=== PATIENT | male | born 1950 | race Two or more races ===

== ENCOUNTER 2023-11-05 11:10 | Inpatient (IN) | payer MEDICARE, OTHER ==
[~2023-11-05] VITALS: Ht 177.8 cm; Wt 94.3 kg
[2023-11-05 14:14] LABS: BASOPHILS % (AUTO) 0.5 % (0.0-2.0); EOSINOPHILS # (AUTO) 0.2 K/uL (0.0-0.7); EOSINOPHILS % (AUTO) 2.3 % (0.0-6.0); HEMATOCRIT 46 % (39-51); HEMOGLOBIN 15.8 g/dL (13.5-17.5); LYMPHOCYTES # (AUTO) 2.3 K/uL (0.8-4.8); LYMPHOCYTES % (AUTO) 32.6 % (20.0-44.0); MEAN CORPUSCULAR HEMOGLOBIN 32 PG (26.0-33.0); MEAN CORPUSCULAR HGB CONC 34 g/dl (31.0-36.0); MEAN CORPUSCULAR VOLUME 93 fL (80-96); MONOCYTES # (AUTO) 0.7 K/uL (0.1-1.30); MONOCYTES % (AUTO) 10.2 % (2.0-12.0); NEUTROPHILS # (AUTO) 3.9 K/uL (1.8-8.9); NEUTROPHILS % (AUTO) 54.4 % (43.0-81.0); PLATELET COUNT (AUTO) 129 K/uL (150-450); RED BLOOD CELL COUNT(AUTO) 4.97 MIL/uL (4.5-6.0); RED CELL DISTRIBUTION WIDTH 14.1 % (11.5-15.0); WHITE BLOOD COUNT (AUTO) 7.2 K/uL (4.3-11.0)
[2023-11-05 14:20] LABS: CALCIUM, SERUM 9.1 mg/dL (8.5-10.1); CREATININE 0.9 mg/dL (0.6-1.3); MAGNESIUM 2.3 mg/dL (1.8-2.4); POTASSIUM 4.2 mmol/L (3.5-5.1)
[2023-11-05] MEDS ORDERED: LORAZEPAM INJ 2 MG/ML VIAL ONE (15:54)
[2023-11-05] MEDS: LORAZEPAM INJ 2 MG/ML VIAL IV ONE (15:58)
[2023-11-05] MEDS: LEVETIRACETAM (500MG) 1,000 MG in IV NS 0.9% 90 ML IV SCH (16:15)
[2023-11-05] MEDS ORDERED: Z GUARD REMEDY 4 OZ OINT TP PRN (18:00)
[2023-11-05] MEDS ORDERED: ONDANSETRON HCL/PF 4 MG/2 ML VIAL IVP PRN (18:00)
[2023-11-05] MEDS ORDERED: LORAZEPAM INJ 2 MG/ML VIAL IV PRN (18:00)
[2023-11-05] MEDS ORDERED: ACETAMINOPHEN 325 MG TABLET PO PRN (18:00)
[2023-11-05] MEDS ORDERED: METHOCARBAMOL (500MG) 500 MG TABLET PO PRN (18:00)
[2023-11-05] MEDS ORDERED: MAGNESIUM HYDROXIDE 30 ML UDC PO PRN (18:00)
[2023-11-05] MEDS: IV NS 0.9% 1,000 ML IV PRN (19:58)
[2023-11-05 20:00] VITALS: BP 119/82; TEMP 98.1; O2SAT 100
[2023-11-05] MEDS: ATORVASTATIN 40 MG TABLET PO SCH (21:22)
[2023-11-05] MEDS: LEVETIRACETAM (250 MG) 250 MG TABLET PO SCH (21:22)
[2023-11-05] MEDS: ENOXAPARIN SODIUM 40 MG/0.4 ML DISP.SYRIN SQ SCH (21:35)
[2023-11-06] VITALS: BP 118/82; TEMP 97.9; O2SAT 100
[2023-11-06 04:00] VITALS: BP 121/85; TEMP 98.3; O2SAT 98
[2023-11-06 07:05] LABS: BASOPHILS % (AUTO) 0.5 % (0.0-2.0); EOSINOPHILS # (AUTO) 0.2 K/uL (0.0-0.7); EOSINOPHILS % (AUTO) 3.1 % (0.0-6.0); HEMATOCRIT 42 % (39-51); HEMOGLOBIN 14.5 g/dL (13.5-17.5); LYMPHOCYTES # (AUTO) 1.9 K/uL (0.8-4.8); LYMPHOCYTES % (AUTO) 30.7 % (20.0-44.0); MEAN CORPUSCULAR HEMOGLOBIN 32 PG (26.0-33.0); MEAN CORPUSCULAR HGB CONC 34 g/dl (31.0-36.0); MEAN CORPUSCULAR VOLUME 92 fL (80-96); MONOCYTES # (AUTO) 0.6 K/uL (0.1-1.30); MONOCYTES % (AUTO) 10.3 % (2.0-12.0); NEUTROPHILS # (AUTO) 3.4 K/uL (1.8-8.9); NEUTROPHILS % (AUTO) 55.4 % (43.0-81.0); PLATELET COUNT (AUTO) 120 K/uL (150-450); RED BLOOD CELL COUNT(AUTO) 4.59 MIL/uL (4.5-6.0); RED CELL DISTRIBUTION WIDTH 13.6 % (11.5-15.0)
[2023-11-06 07:23] LABS: BILIRUBIN,TOTAL 0.8 mg/dL (0.2-1.0); CALCIUM, SERUM 8.8 mg/dL (8.5-10.1); MAGNESIUM 2.1 mg/dL (1.8-2.4); PHOSPHORUS 3.2 mg/dL (2.5-4.9); POTASSIUM 3.6 mmol/L (3.5-5.1); TOTAL PROTEIN, SERUM 6.7 g/dL (6.4-8.2)
[2023-11-06 07:37] LABS: THYROID STIMULATING HORMONE 3.17 uIU/mL (0.358-3.74)
[2023-11-06 07:55] LABS: APPEARANCE,URINE CLEAR (CLEAR); BILIRUBIN,URINE NEGATIVE (NEGATIVE); BLOOD, URINE NEGATIVE Ery/uL (NEGATIVE); COLOR,URINE YELLOW (YELLOW); KETONES,URINE NEGATIVE (NEGATIVE); LEUKOCYTE ESTERASE ,URINE NEGATIVE (NEGATIVE); NITRITE, URINE NEGATIVE (NEGATIVE); PROTEIN,URINE NEGATIVE (NEGATIVE); UGLUCOSE NEGATIVE (NEGATIVE)
[2023-11-06 08:00] VITALS: BP 120/84; TEMP 97.7; O2SAT 96
[2023-11-06] MEDS ORDERED: SENN-261 PO (08:00)
[2023-11-06] MEDS ORDERED: ASPI-1169 PO (08:00)
[2023-11-06] MEDS ORDERED: LISI10TA29 PO (08:00)
[2023-11-06] MEDS ORDERED: OMEP40CA21 PO (08:00)
[2023-11-06] MEDS ORDERED: LEVE100023 PO (08:00)
[2023-11-06] MEDS ORDERED: ATOR40TA PO (08:00)
[2023-11-06] MEDS ORDERED: ACET325C7 PO (08:00)
[2023-11-06] MEDS: ASPIRIN 81 MG TAB.CHEW PO SCH (08:33)
[2023-11-06] MEDS: PANTOPRAZOLE 40 MG TABLET.DR PO SCH (08:33)
[2023-11-06 12:00] VITALS: BP 131/74; TEMP 97.9; O2SAT 99
[2023-11-06] MEDS: CLOPIDOGREL BISULFATE 75 MG TABLET PO SCH (13:09)
[2023-11-06 16:00] VITALS: BP 114/59; TEMP 98.2; O2SAT 96
[2023-11-06] MEDS ORDERED: IOHEXOL-350 100 ML VIAL IV ONE (16:02)
[2023-11-06] MEDS ORDERED: CT SWABBABLE VALVE TRANS SET 1 EA INFUS.SET MC ONE (16:02)
[2023-11-06 20:00] VITALS: BP 118/82; TEMP 97.7; O2SAT 96; O2SAT 99
[2023-11-06] MEDS: LEVETIRACETAM (250 MG) 250 MG TABLET PO SCH (21:33)
[2023-11-07] VITALS: BP 123/82; TEMP 97.9; O2SAT 95
[2023-11-07 04:00] VITALS: BP 123/82; TEMP 97.7; O2SAT 95
[2023-11-07 06:48] LABS: BASOPHILS % (AUTO) 0.5 % (0.0-2.0); EOSINOPHILS # (AUTO) 0.1 K/uL (0.0-0.7); EOSINOPHILS % (AUTO) 2.2 % (0.0-6.0); HEMATOCRIT 41 % (39-51); HEMOGLOBIN 14.3 g/dL (13.5-17.5); LYMPHOCYTES # (AUTO) 1.7 K/uL (0.8-4.8); LYMPHOCYTES % (AUTO) 28.5 % (20.0-44.0); MEAN CORPUSCULAR HEMOGLOBIN 32 PG (26.0-33.0); MEAN CORPUSCULAR HGB CONC 35 g/dl (31.0-36.0); MEAN CORPUSCULAR VOLUME 91 fL (80-96); MONOCYTES # (AUTO) 0.5 K/uL (0.1-1.30); MONOCYTES % (AUTO) 7.9 % (2.0-12.0); NEUTROPHILS # (AUTO) 3.7 K/uL (1.8-8.9); NEUTROPHILS % (AUTO) 60.9 % (43.0-81.0); PLATELET COUNT (AUTO) 126 K/uL (150-450); WHITE BLOOD COUNT (AUTO) 6.1 K/uL (4.3-11.0)
[2023-11-07 07:10] LABS: CALCIUM, SERUM 8.8 mg/dL (8.5-10.1); CREATININE 0.9 mg/dL (0.6-1.3); MAGNESIUM 1.9 mg/dL (1.8-2.4); PHOSPHORUS 3.6 mg/dL (2.5-4.9); POTASSIUM 3.8 mmol/L (3.5-5.1)
[2023-11-07 08:00] VITALS: BP 123/85; TEMP 98.6; O2SAT 97
[2023-11-07 12:00] VITALS: BP 111/62; TEMP 98.4; O2SAT 98
[2023-11-07 16:00] VITALS: BP 129/65; TEMP 97.9; O2SAT 99
[2023-11-07 20:00] VITALS: BP 135/76; TEMP 97.3; O2SAT 99
[2023-11-07] MEDS: LEVETIRACETAM (250 MG) 250 MG TABLET PO SCH (21:17)
[2023-11-08] VITALS: BP 121/70; TEMP 97.3; O2SAT 98
[2023-11-08 04:00] VITALS: BP 132/85; TEMP 97.3; O2SAT 99
[2023-11-08 08:00] VITALS: BP 135/76; TEMP 97.3; O2SAT 99
[2023-11-08 12:00] VITALS: BP 112/70; TEMP 98.6; O2SAT 97
[2023-11-08 16:00] VITALS: BP 118/85; TEMP 98.2; O2SAT 97
[2023-11-08 20:00] VITALS: BP 129/74; TEMP 99.3; O2SAT 97
[2023-11-09] VITALS: BP 110/71; TEMP 99.1; O2SAT 96
[2023-11-09 04:00] VITALS: BP 130/71; TEMP 98.6; O2SAT 98
[2023-11-09 08:00] VITALS: BP 130/71; TEMP 98.2; O2SAT 99
[2023-11-09] MEDS ORDERED: LEVE1000 PO (10:27)
[2023-11-09] MEDS ORDERED: CLOP75TA15 PO (10:27)
== END 2023-11-09 13:08 | DRG 65 ==
LOC: ER 11:22 → TELE1 17:54
PROVIDERS: ADMIT Nurse Practitioner Family; ATTEND Nurse Practitioner Acute Care
DX: I63.9 Cerebral infarction, unspecified (principal); E87.1 Hypo-osmolality and hyponatremia; I69.351 Hemiplegia and hemiparesis following cerebral infarction affecting right dominant side; G40.909 Epilepsy, unspecified, not intractable, without status epilepticus; D69.6 Thrombocytopenia, unspecified; K21.9 Gastro-esophageal reflux disease without esophagitis; G93.89 Other specified disorders of brain; E86.1 Hypovolemia; R63.1 Polydipsia; R29.709 NIHSS score 9
CPT/HCPCS: 36415; 70450-TC; 70496-TC; 70498-TC; 70551-TC; 71045-TC; 80048-TC; 80053-TC; 80061-TC; 83735-TC; 84100-TC; 84443-TC; 84484-TC; 85025-TC; 92526; 92611-TC; 97110-TC; 97112-TC; 97164; 97530-TC; A4223; G0378; J1650; J1953; J2060; J7030; Q9967

== ENCOUNTER 2025-08-26 08:31 | Inpatient (IN) | payer MEDICARE, OTHER ==
[~2025-08-26] VITALS: Ht 177.8 cm; Wt 69.9 kg
[~2025-08-26 08:31] MED LIST: ACET325C7 PO; ASPI-1169 PO; ATOR40TA PO; CLOP75TA15 PO; LEVE1000 PO; LISI10TA29 PO; OMEP40CA21 PO; SENN-261 PO
[2025-08-26] MEDS: IV NS 0.9% 500 ML BAG IV ONE (08:58)
[2025-08-26 09:35] LABS: APPEARANCE,URINE CLEAR (CLEAR); BLOOD, URINE NEGATIVE Ery/uL (NEGATIVE); LEUKOCYTE ESTERASE ,URINE NEGATIVE (NEGATIVE); NITRITE, URINE NEGATIVE (NEGATIVE); UGLUCOSE NEGATIVE (NEGATIVE)
[2025-08-26 09:58] LABS: PLATELET COUNT (AUTO) 131 K/uL (150-450); RED BLOOD CELL COUNT(AUTO) 4.52 MIL/uL (4.5-6.0); RED CELL DISTRIBUTION WIDTH 14.8 % (11.5-15.0); WHITE BLOOD COUNT (AUTO) 5.3 K/uL (4.3-11.0)
[2025-08-26 10:06] LABS: CALCIUM, SERUM 8.6 mg/dL (8.5-10.1); CREATININE 1.1 mg/dL (0.6-1.3); SODIUM SERUM 141 mmol/L (136-145); UREA NITROGEN, BLOOD 14 mg/dL (7-18)
[2025-08-26 10:07] LABS: SERUM AMMONIA 14 umol/L (11-32)
[2025-08-26] MEDS ORDERED: CT SWABBABLE VALVE TRANS SET 1 EA INFUS.SET MC ONE (10:10)
[2025-08-26] MEDS ORDERED: IV NS 0.9% 250 ML IV ONE (10:10)
[2025-08-26] MEDS ORDERED: IOHEXOL-300 100 ML VIAL IV ONE (10:10)
[2025-08-26 10:12] LABS: ASPARTATE AMINOTRANSFERASE 25 U/L (15-37); TOTAL PROTEIN, SERUM 7.6 g/dL (6.4-8.2)
[2025-08-26 10:14] LABS: LACTIC ACID 1.4 mmol/L (0.4-2.0)
[2025-08-26 10:20] LABS: INR 1.02 (0.91-1.10)
[2025-08-26] MEDS ORDERED: ONDANSETRON HCL/PF 4 MG/2 ML VIAL IVP PRN (12:30)
[2025-08-26] MEDS ORDERED: ACETAMINOPHEN 325 MG TABLET PO PRN (12:30)
[2025-08-26] MEDS ORDERED: MAG HYDROX/AL HYDROX/SIMETH 30 ML UDC PO PRN (12:30)
[2025-08-26] MEDS ORDERED: MAGNESIUM HYDROXIDE 30 ML UDC PO PRN (12:30)
[2025-08-26] MEDS ORDERED: HYDROCODONE/APAP 5/325MG TABLET PO PRN (12:30)
[2025-08-26] MEDS ORDERED: Z GUARD REMEDY 4 OZ OINT TP PRN (12:30)
[2025-08-26] MEDS: IV NS 0.9% 1,000 ML IV PRN (13:08)
[2025-08-26] MEDS: PANTOPRAZOLE 40 MG TABLET.DR PO SCH (13:08)
[2025-08-26 16:00] VITALS: BP 107/70; TEMP 98.2; O2SAT 96
[2025-08-27 07:03] LABS: PLATELET COUNT (AUTO) 117 K/uL (150-450); RED BLOOD CELL COUNT(AUTO) 4.38 MIL/uL (4.5-6.0); RED CELL DISTRIBUTION WIDTH 14.6 % (11.5-15.0); WHITE BLOOD COUNT (AUTO) 4.3 K/uL (4.3-11.0)
[2025-08-27 07:51] LABS: CALCIUM, SERUM 8.8 mg/dL (8.5-10.1); CREATININE 0.9 mg/dL (0.6-1.3); PHOSPHORUS 3.4 mg/dL (2.5-4.9); SODIUM SERUM 141.0 mmol/L (136-145); UREA NITROGEN, BLOOD 11.0 mg/dL (7-18)
[2025-08-27 08:56] LABS: LDL 103.0 mg/dL (0-99)
[2025-08-27 16:00] VITALS: BP 114/75; TEMP 97.2; O2SAT 99
[2025-08-28] VITALS: BP 119/73; TEMP 98.4; O2SAT 100
[2025-08-28 08:00] VITALS: BP 125/84; TEMP 97.7; O2SAT 94
[2025-08-28 16:00] VITALS: BP 140/90; TEMP 98; O2SAT 97
[2025-08-28 20:00] VITALS: BP 102/69; TEMP 98.2; O2SAT 99
[2025-08-29 04:00] VITALS: BP 123/72; TEMP 97.7; O2SAT 99
[2025-08-29 08:00] VITALS: BP 137/81; TEMP 97.6; O2SAT 96
[2025-08-29] MEDS ORDERED: ACID1TAB12 PO (10:12)
[2025-08-29] MEDS ORDERED: PANT40TA49 PO (10:12)
[2025-08-29 16:00] VITALS: BP 103/68; TEMP 98.6; O2SAT 97
== END 2025-08-29 17:15 | DRG 391 ==
LOC: ER 08:36 → MEDSG1 10:23
PROVIDERS: ADMIT Nurse Practitioner Acute Care; ATTEND Nurse Practitioner Acute Care
DX: A08.4 Viral intestinal infection, unspecified (principal); G93.41 Metabolic encephalopathy; R56.9 Unspecified convulsions; J84.9 Interstitial pulmonary disease, unspecified; I69.320 Aphasia following cerebral infarction; Z79.02 Long term (current) use of antithrombotics/antiplatelets; J43.9 Emphysema, unspecified; N40.0 Benign prostatic hyperplasia without lower urinary tract symptoms; Z79.899 Other long term (current) drug therapy; Z79.82 Long term (current) use of aspirin
CPT/HCPCS: 36415; 70450-TC; 71045-TC; 80048-TC; 80061-TC; 80076-TC; 82140-TC; 83605-TC; 83690-TC; 83735-TC; 84100-TC; 84484-TC; 85025-TC; 85730-TC; 87040-TC; 87086-TC; 97110-TC; 97116-TC; 97530-TC; 97535-TC; A4223; G0378; J7030; J7040; J7050; Q9967